=== PATIENT | male | born 1950 | race Two or more races ===

== ENCOUNTER 2018-07-15 07:26 | Outpatient (CLI) | payer OTHER ==
[~2018-07-15 07:26] MED LIST: AVAPRO75 MG; GLUCOPHAGE XR500 MG; SYNTHROID75 MCG
== END 2018-07-15 07:30 | disposition home or self-care (01) ==
LOC: TOM 07:26
DX: R10.84 Generalized abdominal pain (principal); C25.9 Malignant neoplasm of pancreas, unspecified

== ENCOUNTER 2018-07-22 09:43 | Outpatient (CLI) | payer OTHER | END 2018-07-22 09:54 | disposition home or self-care (01) | LOC: NUCLEAR 09:43 | DX: M19.90 Unspecified osteoarthritis, unspecified site (principal) | CPT/HCPCS: 78306; A9503 ==

== ENCOUNTER 2018-12-28 17:45 | Emergency (ER) | payer OTHER ==
[~2018-12-28] VITALS: Ht 152.4 cm; Wt 67.1 kg
[2018-12-28] MEDS ORDERED: JANUVIA50 MG PO (18:22)
[2018-12-28] MEDS ORDERED: NORVASC5 MG (18:23)
== END 2018-12-28 22:53 | disposition home or self-care (01) ==
LOC: ER 17:45
DX: K86.89 Other specified diseases of pancreas (principal); N28.1 Cyst of kidney, acquired